=== PATIENT | male | born 2000 | race African-American/Black ===

== ENCOUNTER 2019-02-01 21:35 | Emergency (ER) | payer SELFPAY ==
[~2019-02-01] VITALS: Ht 193 cm; Wt 75.7 kg
[2019-02-01 22:58] VITALS: Ht 193 cm; Wt 75.7 kg
[2019-02-02 00:27] VITALS: BP 141/89
== END 2019-02-02 00:27 | disposition home or self-care (01) ==
LOC: ED 21:35
DX: R53.1 Weakness (principal)